=== PATIENT | female | born 2000 | race Caucasian/White ===

== ENCOUNTER 2019-03-18 00:12 | Emergency (ER) | payer SELFPAY ==
[~2019-03-18] VITALS: Ht 165.1 cm; Wt 81.6 kg
[2019-03-18 00:27] VITALS: BP 142/89
[2019-03-18] MEDS ORDERED: LIDOCAINE 2%/EPI 1:100,000 20 ML VIAL. IJ ONE (00:30)
[2019-03-18] MEDS ORDERED: NEOMY/BACITR/POLYMYXIN OINT PACKET. TP ONE (00:30)
[2019-03-18] MEDS ORDERED: DIPHTH,PERTUSS(ACELL),TET TOX 0.5 ML DISP.SYRIN. VAX IM ONE (00:45)
--- NOTE | 2019-03-18 00:52 | PHYS DOC ---
Past History Past Medical History: No Pertinent History Past Surgical History: No Surgical History Smoking: Non-smoker Alcohol Use: None Drug Use: Marijuana Adult General Chief Complaint Chief Complaint: LACERATION/AVULSION HPI HPI 18-year-old female presents with report of skin avulsion to distal aspect of l eft fourth toe. Patient reports she was washing dishes passively 1 hour ago and felt something by her foot which she pushed aside. Patient subsequently noticed significant bleeding and pain to toe. Noted a piece of broken glass. Patient reports boyfriend accidentally dropped a glass yesterday and apparently missed a large shard. Patient reports last tetanus shot greater than 5 years ago. Denies . Reports concern for amount of bleeding. Review of Systems Review of Systems Constitutional: Denies fever or chills Musculoskeletal: Denies back pain; reports pain to left fourth toe Integument: Denies rash; reports skin avulsion Neurologic: Denies focal weakness or sensory changes Complete systems were reviewed and found to be within normal limits, except as documented in this note. Current Medications Current Medications Current Medications Medications (Trade) Dose Ordered Sig/Isabella Start Time Stop Time Status Last Admin Dose Admin Diphtheria/ Tetanus/Acell Pertussis (Boostrix) 0.5 ml ONCE ONCE 03/18/19 00:45 03/18/19 00:46 UNV 03/18/19 00:40 0.5 ML Lidocaine/ Epinephrine (Xylocaine 2%-Epi 1:100,000) 20 ml 1X ONCE 03/18/19 00:30 03/18/19 00:37 DC 03/18/19 00:30 20 ML Neomycin/ Polymyxin/ Bacitracin (Triple Antibiotic Ointment) 1 pkt 1X ONCE 03/18/19 00:30 03/18/19 00:37 DC 03/18/19 00:35 1 PKT Allergies Allergies Allergies Coded Allergies Type Severity Reaction Last Updated Verified No Known Drug Allergies 03/18/19 No Physical Exam Physical Exam Constitutional: Well developed, well nourished, anxious, non-toxic appearance HENT: Normocephalic, atraumatic, oropharynx moist Eyes: Conjunctiva normal, no discharge Neck: Normal range of motion, no tenderness, supple Cardiovascular: Left PT and DP +2, cap refill less than 2 seconds to left fourth toe Lungs & Thorax: No respiratory distress Skin: Warm, dry, no erythema, distal skin avulsion of distal aspect of left fourth toe with active bleeding, smaller superficial abrasion to distal fifth toe Extremities: Superficial tenderness near skin avulsion of left fourth toe, ROM intact, no edema Neurologic: Alert and oriented X 3, no focal deficits noted Psychologic: Affect anxious, judgement normal Current Patient Data Vital Signs Vital Signs Date Time Temp Pulse Resp B/P (MAP) Pulse Ox O2 Delivery O2 Flow Rate FiO2 03/18/19 00:27 97.6 74 18 96 Room Air EKG EKG [] Radiology/Procedures Radiology/Procedures [] Course & Med Decision Making Course & Med Decision Making Patient presents with history of present illness and physical exam consistent for skin avulsion of distal left fourth toe. Significant bleeding noted. Digital block therefore performed with subsequent infiltration of lidocaine with epinephrine to wound with direct pressure. Bleeding controlled. Copious irrigation utilized. Wound cleaned and dressed. Tetanus updated. Patient stable for discharge with outpatient follow-up with PCP. Discussed findings and plan with patient and family, who acknowledge understanding and agreement. Dragon Disclaimer Dragon Disclaimer This electronic medical record was generated, in whole or in part, using a voice recognition dictation system. Laceration/Wound Repair Laceration/Wound Repair : Wound Location: lower extremity (left fourth toe) Wound's Depth, Shape: flap (skin avulsion) Wound Length (cm): 1 Wound Explored: clean Irrigated w/ Saline (ccs): 200 Wound Debrided: minimal Sterile Dressing Applied?: Yes Progress Verbal consent obtained. Time out performed. Hand hygiene utilized. Wound cleaned with ChloraPrep. Anesthesia obtained via 4 nerve digital block to left 4th toe via a 30-gauge hypodermic needle with total of (2) mL's of lidocaine 2% with epinephrine with interval appropriate anesthesia of toe. Additional 1ml of 2% lidocaine with epi infiltrated directly into wound at site of bleeding with interval improvement of bleeding. Copious irrigation performed x 200ml of NS. Patient tolerated procedure well and without difficulty. Empiric antibiotic ointment applied prior to sterile dressing. Departure Departure: Impression: Primary Impression: Skin avulsion Disposition: HOME, SELF-CARE Condition: STABLE Referrals: PCP,NO (PCP) Patient Instructions: Wound Care, [id number] Additional Instructions: Do not soak your wound. You may shower. Clean wound daily with soap and water. Change dressing 2 times daily. Use over the counter antibiotic ointment with each dressing change. Use [id number] Tylenol or ibuprofen for pain or discomfort ABRAHAN HARMON DO Mar 18, 2019 00:52
== END 2019-03-18 01:10 | disposition home or self-care (01) ==
LOC: ER 00:12
DX: S91.105A Unspecified open wound of left lesser toe(s) without damage to nail, initial encounter (principal); W25.XXXA Contact with sharp glass, initial encounter; Y93.G1 Activity, food preparation and clean up; Y92.89 Other specified places as the place of occurrence of the external cause; Y99.8 Other external cause status
CPT/HCPCS: 64450; 90471; 90715; 99284